=== PATIENT | male | born 1965 | race Caucasian/White ===

== ENCOUNTER 2018-04-20 14:24 | Inpatient (IN) | payer BC ==
[2018-04-20] MEDS: HYDROmorphONE 1 MG/ML SYG IV ×2 (01:20→23:23)
[2018-04-20 16:03] LABS: ADD MAN DIFF? NO
[2018-04-20 16:07] LABS: WHITE BLOOD COUNT 10.2 10^3/ul (4.8-10.8)
[2018-04-20 16:07] LABS: BASOPHILS % 0.3 % (0.0-2.0); EOSINOPHILS # 0.1 10^3/ul (0.0-0.5); EOSINOPHILS % 1.1 % (0.0-7.0); HEMATOCRIT 43.3 % (42.0-52.0); HEMOGLOBIN 14.1 g/dl (14.0-18.0); IMMATURE GRANS #M 0.03 10^3/ul; IMMATURE GRANS % (M) 0.3 %; LYMPHOCYTES # 2.4 10^3/ul (0.8-2.9); LYMPHOCYTES % 23.4 % (15.0-51.0); MEAN CORPUSCULAR HGB CONC 32.6 g/dl (32.0-37.0); MEAN PLATELET VOLUME 9.6 fl (7.4-10.4); MONOCYTE # 0.7 10^3/ul (0.3-0.9); MONOCYTES % 6.7 % (0.0-11.0); NEUTROPHILS % 68.2 % (39.0-77.0); PLATELET COUNT 322 10^3/UL (140-415); RED BLOOD COUNT 5.22 10^6/ul (4.70-6.10); RED CELL DISTRIBUTION WIDTH 13.5 % (11.5-14.5)
[2018-04-20 16:27] LABS: ALANINE AMINOTRANSFERASE 44 IU/L (13-69); ALBUMIN 4.3 g/dl (3.3-4.9); ALBUMIN/GLOBULIN RATIO 1.19; ALKALINE PHOSPHATASE 57 IU/L (42-121); ANION GAP 16 (8-16); ASPARTATE AMINO TRANSFERASE 28 IU/L (15-46); BILIRUBIN,INDIRECT 0.3 mg/dl (0-1.1); BILIRUBIN,TOTAL 0.3 mg/dl (0.2-1.3); BLOOD UREA NITROGEN 11 mg/dl (7-20); CALCIUM 9.4 mg/dl (8.4-10.2); CARBON DIOXIDE 28 mmol/L (21-31); CHLORIDE 102 mmol/L (97-110); CREATININE 0.68 mg/dl (0.61-1.24); GLUCOSE 114 mg/dl (70-220); INR 0.98; POTASSIUM 4.4 mmol/L (3.5-5.1); PROTIME 13.1 Sec (11.9-14.9); SODIUM 142 mmol/L (135-144); TOTAL PROTEIN 7.9 g/dl (6.1-8.1)
[2018-04-20 16:29] LABS: PARTIAL THROMBOPLASTIN TIME 25.5 Sec (25.0-35.0)
[2018-04-20] MEDS ORDERED: MIDAZOLAM 1 MG/ML 2 ML INJ (17:39)
[2018-04-20] MEDS ORDERED: FENTAnyl 50 MCG/ML VIAL ×2 (17:39→20:08)
[2018-04-20] MEDS ORDERED: ROCURONIUM 50 MG INJ (17:41)
[2018-04-20] MEDS ORDERED: SUCCINYLCHOLINE CHLORIDE 100 MG/5 ML SYG IV (17:41)
[2018-04-20] MEDS ORDERED: HEPARIN 1000 UNITS/ML 10 ML INJ (17:42)
[2018-04-20] MEDS ORDERED: ONDANSETRON 4 MG INJ (17:56)
[2018-04-20] MEDS ORDERED: NALOXONE (0.4 MG/ML) INJ IV (19:30)
[2018-04-20] MEDS: DOCUSATE SODIUM 100 MG CAP PO (20:00)
[2018-04-20] MEDS ORDERED: ACETAMINOPHEN 1000MG/100ML IV 100 ML (20:08)
[2018-04-20] MEDS: CEFAZOLIN 1 GM INJ (20:11)
[2018-04-20] MEDS: GELATIN SIZE 100 SPONGE (20:13)
[2018-04-20] MEDS: THROMBIN 5000 UNIT VIAL (20:14)
[2018-04-20] MEDS ORDERED: HYDROmorphONE 2 MG/ML SYG (21:35)
[2018-04-20] MEDS ORDERED: GELATIN SIZE 100 SPONGE (21:39)
[2018-04-20] MEDS ORDERED: THROMBIN 5000 UNIT VIAL (21:39)
[2018-04-20] MEDS: CEFAZOLIN 2 GM/50 ML (PMX) 50 ML IVPB (22:00)
[2018-04-20] MEDS ORDERED: ALBUMIN HUMAN 25% 200 ML (22:29)
[2018-04-20] MEDS ORDERED: PROVENTIL HFA 6.7GM INHALER (22:32)
[2018-04-20] MEDS ORDERED: LABETALOL HCL 20MG INJ (22:58)
[2018-04-20] MEDS ORDERED: METOPROLOL 5 MG INJ (22:58)
[2018-04-20 23:14] LABS: ADD MAN DIFF? NO
[2018-04-20 23:16] LABS: BASOPHILS % 0.1 % (0.0-2.0); EOSINOPHILS % 0.1 % (0.0-7.0); HEMATOCRIT 35.6 % (42.0-52.0); HEMOGLOBIN 11.5 g/dl (14.0-18.0); IMMATURE GRANS #M 0.21 10^3/ul; LYMPHOCYTES # 2.8 10^3/ul (0.8-2.9); MEAN CORPUSCULAR HEMOGLOBIN 27.1 pg (29.0-33.0); MEAN CORPUSCULAR HGB CONC 32.3 g/dl (32.0-37.0); MONOCYTE # 1.2 10^3/ul (0.3-0.9); MONOCYTES % 5.7 % (0.0-11.0); NEUTROPHIL # 17.4 10^3/ul (1.6-7.5); NEUTROPHILS % 80.1 % (39.0-77.0); PLATELET COUNT 261 10^3/UL (140-415); RED BLOOD COUNT 4.24 10^6/ul (4.70-6.10); RED CELL DISTRIBUTION WIDTH 13.6 % (11.5-14.5)
[2018-04-20 23:16] LABS: WHITE BLOOD COUNT 21.7 10^3/ul (4.8-10.8)
[2018-04-20] MEDS ORDERED: HYDROmorphONE 1 MG/ML SYG (23:16)
[2018-04-20] MEDS ORDERED: MIDAZOLAM 1 MG/ML 2 ML INJ IV (23:30)
[2018-04-20] MEDS ORDERED: LORAZEPAM 2 MG INJ IV (23:30)
[2018-04-20] MEDS ORDERED: MEPERIDINE 25 MG INJ IV (23:30)
[2018-04-20] MEDS ORDERED: ONDANSETRON 4 MG INJ IV (23:30)
[2018-04-20] MEDS: IPRATROPIUM (NEB) 0.5 MG/2.5 ML AMP HHN (23:30)
[2018-04-20] MEDS ORDERED: HYDROmorphONE 0.5 MG/0.5 ML SYG IV ×3 (23:30)
[2018-04-20] MEDS ORDERED: hydrALAzine 20 MG INJ IV (23:30)
[2018-04-20] MEDS ORDERED: FENTAnyl 50 MCG/ML VIAL IV ×2 (23:30)
[2018-04-20] MEDS ORDERED: LABETALOL HCL 20MG INJ IV (23:30)
[2018-04-20] MEDS ORDERED: DIPHENHYDRAMINE 50 MG INJ IV (23:30)
[2018-04-20 23:33] LABS: ANION GAP 17 (8-16); BLOOD UREA NITROGEN 11 mg/dl (7-20); CALCIUM 10.3 mg/dl (8.4-10.2); CARBON DIOXIDE 25 mmol/L (21-31); CHLORIDE 103 mmol/L (97-110); CREATININE 0.81 mg/dl (0.61-1.24); GLUCOSE 187 mg/dl (70-220); POTASSIUM 4.4 mmol/L (3.5-5.1); SODIUM 141 mmol/L (135-144)
[2018-04-20 23:57] LABS: INR 1.16; PARTIAL THROMBOPLASTIN TIME 23.8 Sec (25.0-35.0); PT RATIO 1.2
[2018-04-21] MEDS: HYDROmorphONE 1 MG/ML SYG IV (00:23)
[2018-04-21] MEDS: NS + KCL 20 MEQ 1,000 ML IV ×3 (01:00→13:14)
[2018-04-21] MEDS: HYDROCODONE/APAP (5/325) TAB PO (03:12)
[2018-04-21] MEDS: HYDROmorphONE 0.2 MG/ML PCA IV ×2 (05:00→14:02)
[2018-04-21] MEDS: CEFAZOLIN 2 GM/50 ML (PMX) 50 ML IVPB ×2 (05:20→16:11)
[2018-04-21 05:23] LABS: HEMATOCRIT 33.1 % (42.0-52.0); HEMOGLOBIN 10.8 g/dl (14.0-18.0)
[2018-04-21 05:47] LABS: ANION GAP 16 (8-16); BLOOD UREA NITROGEN 11 mg/dl (7-20); CALCIUM 9.5 mg/dl (8.4-10.2); CARBON DIOXIDE 28 mmol/L (21-31); CHLORIDE 104 mmol/L (97-110); CREATININE 0.67 mg/dl (0.61-1.24); GLUCOSE 137 mg/dl (70-220); POTASSIUM 4.7 mmol/L (3.5-5.1); SODIUM 143 mmol/L (135-144)
[2018-04-21] MEDS: DOCUSATE SODIUM 100 MG CAP PO ×2 (10:24→22:17)
[2018-04-21] MEDS: ASPIRIN 81 MG TAB PO (12:00)
[2018-04-21] MEDS ORDERED: ALBUTEROL/IPRATROPIUM (NEB) 3 ML AMP HHN (12:30)
[2018-04-21] MEDS: ATORVASTATIN 10 MG TAB PO (22:16)
[2018-04-21] MEDS: TAMSULOSIN (SR) 0.4 MG CAP PO (22:17)
[2018-04-22] MEDS: ONDANSETRON 4 MG INJ IV (00:31)
[2018-04-22] MEDS: NS + KCL 20 MEQ 1,000 ML IV ×3 (00:32→22:10)
[2018-04-22] MEDS: CEFAZOLIN 2 GM/50 ML (PMX) 50 ML IVPB ×4 (00:45→22:10)
[2018-04-22] MEDS: PANTOPRAZOLE 40 MG INJ IV ×2 (02:50→06:00)
[2018-04-22] MEDS: HYDROmorphONE 0.2 MG/ML PCA IV ×2 (04:00→15:08)
[2018-04-22 05:56] LABS: ADD MAN DIFF? NO
[2018-04-22 06:06] LABS: ABNORMAL IP MESSAGE 1; BASOPHILS % 0.1 % (0.0-2.0); EOSINOPHILS % 0.1 % (0.0-7.0); HEMATOCRIT 35.6 % (42.0-52.0); HEMOGLOBIN 11.4 g/dl (14.0-18.0); IMMATURE GRANS % (M) 0.6 %; LYMPHOCYTES # 1.7 10^3/ul (0.8-2.9); LYMPHOCYTES % 9.3 % (15.0-51.0); MEAN CORPUSCULAR HEMOGLOBIN 26.6 pg (29.0-33.0); MEAN PLATELET VOLUME 9.7 fl (7.4-10.4); MONOCYTE # 1.5 10^3/ul (0.3-0.9); MONOCYTES % 8.5 % (0.0-11.0); NEUTROPHIL # 14.5 10^3/ul (1.6-7.5); NEUTROPHILS % 81.4 % (39.0-77.0); PLATELET COUNT 257 10^3/UL (140-415); POSITIVE DIFF @See below; RED BLOOD COUNT 4.29 10^6/ul (4.70-6.10); RED CELL DISTRIBUTION WIDTH 14.1 % (11.5-14.5)
[2018-04-22 06:06] LABS: WHITE BLOOD COUNT 17.8 10^3/ul (4.8-10.8)
[2018-04-22 06:25] LABS: ANION GAP 15 (8-16); BLOOD UREA NITROGEN 6 mg/dl (7-20); CALCIUM 8.7 mg/dl (8.4-10.2); CARBON DIOXIDE 29 mmol/L (21-31); CHLORIDE 100 mmol/L (97-110); CREATININE 0.76 mg/dl (0.61-1.24); GLUCOSE 130 mg/dl (70-220); POTASSIUM 3.7 mmol/L (3.5-5.1); SODIUM 140 mmol/L (135-144)
[2018-04-22] MEDS: DOCUSATE SODIUM 100 MG CAP PO ×2 (07:52→20:13)
[2018-04-22] MEDS: FINASTERIDE 5 MG TAB PO (07:52)
[2018-04-22] MEDS ORDERED: NON-FORMULARY/PATIENT OWN MED (Aspirin (Low Dose Aspirin) 81 MG) PO (09:00)
[2018-04-22] MEDS ORDERED: POLYMYXIN/BACITRACIN 1L IRRIG (10:36)
[2018-04-22] MEDS ORDERED: ROPIVACAINE 0.5 % 30 ML VIAL (10:36)
[2018-04-22] MEDS: ACETAMINOPHEN 1000MG/100ML IV 100 ML IVPB (11:00)
[2018-04-22 13:49] LABS: LACTIC ACID 1.3 mmol/L (0.5-2.0)
[2018-04-22] MEDS: ASPIRIN 81 MG TAB PO (18:07)
[2018-04-22] MEDS: ATORVASTATIN 10 MG TAB PO (20:13)
[2018-04-22] MEDS: TAMSULOSIN (SR) 0.4 MG CAP PO (20:13)
[2018-04-23] MEDS: ACETAMINOPHEN 325 MG TAB PO (01:04)
[2018-04-23 05:07] LABS: ADD MAN DIFF? NO
[2018-04-23 05:10] LABS: WHITE BLOOD COUNT 14.7 10^3/ul (4.8-10.8)
[2018-04-23 05:10] LABS: BASOPHILS % 0.1 % (0.0-2.0); EOSINOPHILS # 0.1 10^3/ul (0.0-0.5); EOSINOPHILS % 0.6 % (0.0-7.0); HEMOGLOBIN 10.4 g/dl (14.0-18.0); LYMPHOCYTES # 1.9 10^3/ul (0.8-2.9); MEAN CORPUSCULAR HGB CONC 32.5 g/dl (32.0-37.0); MEAN CORPUSCULAR VOLUME 83.1 fl (82.0-101.0); MEAN PLATELET VOLUME 9.6 fl (7.4-10.4); MONOCYTE # 0.9 10^3/ul (0.3-0.9); MONOCYTES % 6.1 % (0.0-11.0); NEUTROPHIL # 11.6 10^3/ul (1.6-7.5); NEUTROPHILS % 79.5 % (39.0-77.0); PLATELET COUNT 219 10^3/UL (140-415); RED BLOOD COUNT 3.85 10^6/ul (4.70-6.10); RED CELL DISTRIBUTION WIDTH 13.8 % (11.5-14.5)
[2018-04-23 05:17] LABS: LACTIC ACID 1.1 mmol/L (0.5-2.0)
[2018-04-23 05:38] LABS: ANION GAP 10 (8-16); BLOOD UREA NITROGEN 5 mg/dl (7-20); CALCIUM 8.2 mg/dl (8.4-10.2); CARBON DIOXIDE 31 mmol/L (21-31); CHLORIDE 101 mmol/L (97-110); GLUCOSE 150 mg/dl (70-220); POTASSIUM 3.6 mmol/L (3.5-5.1); SODIUM 138 mmol/L (135-144)
[2018-04-23] MEDS: CEFAZOLIN 2 GM/50 ML (PMX) 50 ML IVPB ×3 (05:42→22:04)
[2018-04-23] MEDS: PANTOPRAZOLE 40 MG INJ IV (05:42)
[2018-04-23] MEDS: ASPIRIN 81 MG TAB PO (08:52)
[2018-04-23] MEDS: FINASTERIDE 5 MG TAB PO (08:52)
[2018-04-23] MEDS: DOCUSATE SODIUM 100 MG CAP PO ×2 (08:53→20:34)
[2018-04-23] MEDS: HYDROmorphONE 0.2 MG/ML PCA IV (13:41)
[2018-04-23] MEDS: NS + KCL 20 MEQ 1,000 ML IV ×2 (13:43→18:30)
[2018-04-23] MEDS: ATORVASTATIN 10 MG TAB PO (20:34)
[2018-04-23] MEDS: TAMSULOSIN (SR) 0.4 MG CAP PO (20:34)
[2018-04-24] MEDS: NS + KCL 20 MEQ 1,000 ML IV ×3 (02:00→13:34)
[2018-04-24 05:11] LABS: ADD MAN DIFF? NO; BASOPHILS % 0.2 % (0.0-2.0); EOSINOPHILS # 0.2 10^3/ul (0.0-0.5); EOSINOPHILS % 1.4 % (0.0-7.0); HEMOGLOBIN 11.1 g/dl (14.0-18.0); LYMPHOCYTES # 1.5 10^3/ul (0.8-2.9); LYMPHOCYTES % 12.3 % (15.0-51.0); MEAN CORPUSCULAR HEMOGLOBIN 27.2 pg (29.0-33.0); MEAN CORPUSCULAR HGB CONC 32.6 g/dl (32.0-37.0); MEAN CORPUSCULAR VOLUME 83.3 fl (82.0-101.0); MEAN PLATELET VOLUME 9.5 fl (7.4-10.4); MONOCYTE # 0.8 10^3/ul (0.3-0.9); MONOCYTES % 6.5 % (0.0-11.0); NEUTROPHIL # 9.9 10^3/ul (1.6-7.5); PLATELET COUNT 262 10^3/UL (140-415); RED BLOOD COUNT 4.08 10^6/ul (4.70-6.10); RED CELL DISTRIBUTION WIDTH 13.6 % (11.5-14.5)
[2018-04-24 05:11] LABS: WHITE BLOOD COUNT 12.5 10^3/ul (4.8-10.8)
[2018-04-24 05:34] LABS: ANION GAP 10 (8-16); BLOOD UREA NITROGEN 7 mg/dl (7-20); CALCIUM 8.5 mg/dl (8.4-10.2); CARBON DIOXIDE 34 mmol/L (21-31); CHLORIDE 100 mmol/L (97-110); CREATININE 0.65 mg/dl (0.61-1.24); GLUCOSE 131 mg/dl (70-220); POTASSIUM 3.8 mmol/L (3.5-5.1); SODIUM 140 mmol/L (135-144)
[2018-04-24] MEDS: PANTOPRAZOLE 40 MG INJ IV (06:14)
[2018-04-24] MEDS: CEFAZOLIN 2 GM/50 ML (PMX) 50 ML IVPB ×3 (06:14→21:19)
[2018-04-24] MEDS: ASPIRIN 81 MG TAB PO (09:09)
[2018-04-24] MEDS: DOCUSATE SODIUM 100 MG CAP PO ×2 (09:09→21:00)
[2018-04-24] MEDS: FINASTERIDE 5 MG TAB PO (09:09)
[2018-04-24] MEDS: BISACODYL 10 MG SUPP PR (17:02)
[2018-04-24] MEDS: ATORVASTATIN 10 MG TAB PO (21:00)
[2018-04-24] MEDS: TAMSULOSIN (SR) 0.4 MG CAP PO (21:00)
[2018-04-24] MEDS: ACETAMINOPHEN 325 MG TAB PO (21:00)
[2018-04-25] MEDS: ACETAMINOPHEN 325 MG TAB PO (01:19)
[2018-04-25] MEDS: CEFAZOLIN 2 GM/50 ML (PMX) 50 ML IVPB ×3 (05:01→22:00)
[2018-04-25] MEDS: PANTOPRAZOLE 40 MG INJ IV (05:01)
[2018-04-25] MEDS: NS + KCL 20 MEQ 1,000 ML IV ×2 (05:01→22:24)
[2018-04-25 06:00] LABS: ADD MAN DIFF? NO
[2018-04-25 06:02] LABS: WHITE BLOOD COUNT 9.6 10^3/ul (4.8-10.8)
[2018-04-25 06:02] LABS: BASOPHILS % 0.2 % (0.0-2.0); EOSINOPHILS # 0.3 10^3/ul (0.0-0.5); EOSINOPHILS % 3.1 % (0.0-7.0); HEMATOCRIT 33.3 % (42.0-52.0); HEMOGLOBIN 10.8 g/dl (14.0-18.0); LYMPHOCYTES % 21.2 % (15.0-51.0); MEAN CORPUSCULAR HEMOGLOBIN 27.2 pg (29.0-33.0); MEAN CORPUSCULAR HGB CONC 32.4 g/dl (32.0-37.0); MEAN CORPUSCULAR VOLUME 83.9 fl (82.0-101.0); MEAN PLATELET VOLUME 9.5 fl (7.4-10.4); MONOCYTE # 0.7 10^3/ul (0.3-0.9); MONOCYTES % 7.6 % (0.0-11.0); NEUTROPHIL # 6.5 10^3/ul (1.6-7.5); NEUTROPHILS % 67.3 % (39.0-77.0); PLATELET COUNT 305 10^3/UL (140-415); RED BLOOD COUNT 3.97 10^6/ul (4.70-6.10); RED CELL DISTRIBUTION WIDTH 13.9 % (11.5-14.5)
[2018-04-25 06:25] LABS: ANION GAP 11 (8-16); BLOOD UREA NITROGEN 9 mg/dl (7-20); CALCIUM 8.5 mg/dl (8.4-10.2); CARBON DIOXIDE 30 mmol/L (21-31); CHLORIDE 107 mmol/L (97-110); CREATININE 0.61 mg/dl (0.61-1.24); GLUCOSE 110 mg/dl (70-220); POTASSIUM 3.7 mmol/L (3.5-5.1); SODIUM 144 mmol/L (135-144)
[2018-04-25] MEDS ORDERED: LIDOCAINE 2% (SDV) 5 ML INJ (07:00)
[2018-04-25] MEDS ORDERED: DEXAMETHASONE 4 MG/ML 1 ML INJ (07:00)
[2018-04-25] MEDS ORDERED: ROCURONIUM 50 MG INJ (07:00)
[2018-04-25] MEDS ORDERED: ONDANSETRON 4 MG INJ (07:00)
[2018-04-25] MEDS: ROPIVACAINE 0.5 % 30 ML VIAL (07:01)
[2018-04-25] MEDS ORDERED: THROMBIN 5000 UNIT VIAL (07:01)
[2018-04-25] MEDS ORDERED: GELATIN SIZE 100 SPONGE (07:01)
[2018-04-25] MEDS: POLYMYXIN/BACITRACIN 1L IRRIG (07:01)
[2018-04-25] MEDS ORDERED: MIDAZOLAM 1 MG/ML 2 ML INJ (07:42)
[2018-04-25] MEDS ORDERED: morphine 10 MG INJ (08:02)
[2018-04-25] MEDS ORDERED: ROPIVACAINE 0.5 % 30 ML VIAL (08:07)
[2018-04-25] MEDS ORDERED: LABETALOL HCL 20MG INJ (08:17)
[2018-04-25] MEDS ORDERED: SUGAMMADEX SODIUM 200 MG/2 ML VIAL IV (08:55)
[2018-04-25] MEDS ORDERED: CEFAZOLIN 1 GM INJ (08:55)
[2018-04-25] MEDS ORDERED: PROPOFOL 20 ML (08:55)
[2018-04-25] MEDS: HYDROmorphONE 1 MG/5 ML IV SYRINGE IV ×5 (09:25→09:47)
[2018-04-25] MEDS ORDERED: FENTAnyl 50 MCG/ML VIAL IV ×2 (09:30)
[2018-04-25] MEDS ORDERED: KETOROLAC 30 MG INJ IV (09:30)
[2018-04-25] MEDS ORDERED: OXYCODONE/ACETAMINOPHEN (5/325) TAB PO ×2 (09:30)
[2018-04-25] MEDS ORDERED: hydrALAzine 20 MG INJ IV (09:30)
[2018-04-25] MEDS ORDERED: MIDAZOLAM 1 MG/ML 2 ML INJ IV (09:30)
[2018-04-25] MEDS ORDERED: ALBUTEROL 0.083% (NEB) 2.5 MG/3 ML AMP HHN (09:30)
[2018-04-25] MEDS ORDERED: MEPERIDINE 25 MG INJ IV (09:30)
[2018-04-25] MEDS ORDERED: ONDANSETRON 4 MG INJ IV (09:30)
[2018-04-25] MEDS ORDERED: DIPHENHYDRAMINE 50 MG INJ IV (09:30)
[2018-04-25] MEDS ORDERED: METOCLOPRAMIDE 10 MG INJ IV (09:30)
[2018-04-25] MEDS ORDERED: EPHEDrine SULFATE 50 MG/5 ML SYG IV (09:30)
[2018-04-25] MEDS ORDERED: LABETALOL HCL 20MG INJ IV (09:30)
[2018-04-25] MEDS: FENTAnyl 50 MCG/ML VIAL IV ×2 (09:51→10:03)
[2018-04-25] MEDS: ASPIRIN 81 MG TAB PO (12:37)
[2018-04-25] MEDS: FINASTERIDE 5 MG TAB PO (12:37)
[2018-04-25] MEDS: DOCUSATE SODIUM 100 MG CAP PO ×2 (12:37→20:23)
[2018-04-25] MEDS: HYDROmorphONE 0.2 MG/ML PCA IV ×2 (13:19→23:42)
[2018-04-25] MEDS: ATORVASTATIN 10 MG TAB PO (20:23)
[2018-04-25] MEDS: BISACODYL 10 MG SUPP PR (20:24)
[2018-04-25] MEDS: TAMSULOSIN (SR) 0.4 MG CAP PO (20:25)
[2018-04-26] MEDS: CEFAZOLIN 2 GM/50 ML (PMX) 50 ML IVPB ×4 (02:04→21:31)
[2018-04-26 05:18] LABS: ADD MAN DIFF? NO
[2018-04-26 05:28] LABS: WHITE BLOOD COUNT 13.2 10^3/ul (4.8-10.8)
[2018-04-26 05:28] LABS: BASOPHILS % 0.3 % (0.0-2.0); EOSINOPHILS # 0.4 10^3/ul (0.0-0.5); HEMATOCRIT 32.3 % (42.0-52.0); HEMOGLOBIN 10.3 g/dl (14.0-18.0); LYMPHOCYTES # 2.3 10^3/ul (0.8-2.9); LYMPHOCYTES % 17.4 % (15.0-51.0); MEAN CORPUSCULAR HEMOGLOBIN 26.3 pg (29.0-33.0); MEAN CORPUSCULAR HGB CONC 31.9 g/dl (32.0-37.0); MEAN CORPUSCULAR VOLUME 82.6 fl (82.0-101.0); MONOCYTE # 1.2 10^3/ul (0.3-0.9); MONOCYTES % 9.1 % (0.0-11.0); NEUTROPHIL # 9.2 10^3/ul (1.6-7.5); NEUTROPHILS % 69.5 % (39.0-77.0); PLATELET COUNT 333 10^3/UL (140-415); RED BLOOD COUNT 3.91 10^6/ul (4.70-6.10); RED CELL DISTRIBUTION WIDTH 14.1 % (11.5-14.5)
[2018-04-26] MEDS: PANTOPRAZOLE 40 MG INJ IV (05:57)
[2018-04-26 06:19] LABS: ANION GAP 12 (8-16); BLOOD UREA NITROGEN 6 mg/dl (7-20); CALCIUM 8.1 mg/dl (8.4-10.2); CARBON DIOXIDE 29 mmol/L (21-31); CHLORIDE 100 mmol/L (97-110); CREATININE 0.64 mg/dl (0.61-1.24); GLUCOSE 123 mg/dl (70-220); POTASSIUM 3.9 mmol/L (3.5-5.1); SODIUM 137 mmol/L (135-144)
[2018-04-26] MEDS: NS + KCL 20 MEQ 1,000 ML IV ×2 (06:30→12:15)
[2018-04-26] MEDS: DOCUSATE SODIUM 100 MG CAP PO ×2 (08:15→20:42)
[2018-04-26] MEDS: ASPIRIN 81 MG TAB PO (08:15)
[2018-04-26] MEDS: FINASTERIDE 5 MG TAB PO (08:15)
[2018-04-26] MEDS: HYDROmorphONE 0.2 MG/ML PCA IV (08:42)
[2018-04-26 12:51] LABS: PROCALCITONIN 0.46 ng/mL (<0.10)
[2018-04-26] MEDS: ALBUTEROL/IPRATROPIUM (NEB) 3 ML AMP HHN ×2 (13:04→20:26)
[2018-04-26] MEDS: DIPHENHYDRAMINE 25 MG CAP PO ×2 (15:04→21:30)
[2018-04-26] MEDS: AL HYDROX/MG HYDROX/SIMETH 30 ML CUP PO (15:04)
[2018-04-26] MEDS: HYDROmorphONE 0.5 MG/0.5 ML SYG IV (17:40)
[2018-04-26] MEDS: ATORVASTATIN 10 MG TAB PO (20:42)
[2018-04-26] MEDS: TAMSULOSIN (SR) 0.4 MG CAP PO (20:42)
[2018-04-26] MEDS: SENNA TAB PO (20:43)
[2018-04-26] MEDS: HYDROCODONE/APAP (5/325) TAB PO (20:43)
[2018-04-27] MEDS: DIPHENHYDRAMINE 25 MG CAP PO ×2 (04:02→20:53)
[2018-04-27] MEDS: NS + KCL 20 MEQ 1,000 ML IV (04:03)
[2018-04-27 05:22] LABS: WHITE BLOOD COUNT 12.8 10^3/ul (4.8-10.8)
[2018-04-27 05:22] LABS: ADD MAN DIFF? NO; BASOPHILS % 0.2 % (0.0-2.0); EOSINOPHILS # 0.2 10^3/ul (0.0-0.5); EOSINOPHILS % 1.7 % (0.0-7.0); HEMATOCRIT 31.9 % (42.0-52.0); HEMOGLOBIN 10.2 g/dl (14.0-18.0); LYMPHOCYTES # 1.8 10^3/ul (0.8-2.9); LYMPHOCYTES % 14.2 % (15.0-51.0); MEAN CORPUSCULAR HEMOGLOBIN 26.7 pg (29.0-33.0); MEAN CORPUSCULAR VOLUME 83.5 fl (82.0-101.0); MEAN PLATELET VOLUME 9.3 fl (7.4-10.4); MONOCYTE # 1.1 10^3/ul (0.3-0.9); MONOCYTES % 8.4 % (0.0-11.0); NEUTROPHIL # 9.6 10^3/ul (1.6-7.5); NEUTROPHILS % 74.7 % (39.0-77.0); PLATELET COUNT 353 10^3/UL (140-415); RED BLOOD COUNT 3.82 10^6/ul (4.70-6.10)
[2018-04-27] MEDS: CEFAZOLIN 2 GM/50 ML (PMX) 50 ML IVPB ×2 (06:19→14:33)
[2018-04-27] MEDS: PANTOPRAZOLE 40 MG INJ IV (06:19)
[2018-04-27] MEDS: ALBUTEROL/IPRATROPIUM (NEB) 3 ML AMP HHN ×2 (08:09→19:47)
[2018-04-27] MEDS: HYDROCODONE/APAP (5/325) TAB PO ×3 (08:46→19:57)
[2018-04-27] MEDS: ASPIRIN 81 MG TAB PO (09:41)
[2018-04-27] MEDS: FINASTERIDE 5 MG TAB PO (09:42)
[2018-04-27] MEDS: DOCUSATE SODIUM 100 MG CAP PO ×2 (09:42→20:49)
[2018-04-27] MEDS: TAMSULOSIN (SR) 0.4 MG CAP PO (20:49)
[2018-04-27] MEDS: SENNA TAB PO (20:49)
[2018-04-27] MEDS: ATORVASTATIN 10 MG TAB PO (20:49)
[2018-04-28] MEDS: HYDROCODONE/APAP (5/325) TAB PO ×3 (03:48→20:02)
[2018-04-28] MEDS: NS + KCL 20 MEQ 1,000 ML IV ×2 (05:28→21:44)
[2018-04-28] MEDS: PANTOPRAZOLE (EC) 40 MG TAB PO (06:21)
[2018-04-28] MEDS: DOCUSATE SODIUM 100 MG CAP PO ×2 (08:37→20:52)
[2018-04-28] MEDS: ASPIRIN 81 MG TAB PO (08:37)
[2018-04-28] MEDS: FINASTERIDE 5 MG TAB PO (08:37)
[2018-04-28] MEDS: ALBUTEROL/IPRATROPIUM (NEB) 3 ML AMP HHN ×2 (09:49→20:19)
[2018-04-28] MEDS: HYDROmorphONE 2 MG TAB PO (10:11)
[2018-04-28] MEDS: SENNA TAB PO (20:52)
[2018-04-28] MEDS: ATORVASTATIN 10 MG TAB PO (20:52)
[2018-04-28] MEDS: TAMSULOSIN (SR) 0.4 MG CAP PO (20:52)
[2018-04-29] MEDS: HYDROCODONE/APAP (5/325) TAB PO ×3 (01:48→12:20)
[2018-04-29] MEDS: DIPHENHYDRAMINE 25 MG CAP PO (05:23)
[2018-04-29] MEDS: PANTOPRAZOLE (EC) 40 MG TAB PO (05:23)
[2018-04-29 05:24] LABS: ADD MAN DIFF? NO
[2018-04-29 05:29] LABS: BASOPHILS % 0.3 % (0.0-2.0); EOSINOPHILS # 0.3 10^3/ul (0.0-0.5); EOSINOPHILS % 2.3 % (0.0-7.0); HEMOGLOBIN 10.8 g/dl (14.0-18.0); LYMPHOCYTES # 2.6 10^3/ul (0.8-2.9); MEAN CORPUSCULAR HEMOGLOBIN 26.3 pg (29.0-33.0); MEAN CORPUSCULAR HGB CONC 31.8 g/dl (32.0-37.0); MEAN CORPUSCULAR VOLUME 82.9 fl (82.0-101.0); MEAN PLATELET VOLUME 9.2 fl (7.4-10.4); MONOCYTE # 0.9 10^3/ul (0.3-0.9); MONOCYTES % 6.7 % (0.0-11.0); NEUTROPHILS % 69.2 % (39.0-77.0); PLATELET COUNT 481 10^3/UL (140-415)
[2018-04-29 05:53] LABS: ANION GAP 12 (8-16); BLOOD UREA NITROGEN 12 mg/dl (7-20); CARBON DIOXIDE 30 mmol/L (21-31); CHLORIDE 101 mmol/L (97-110); CREATININE 0.65 mg/dl (0.61-1.24); GLUCOSE 110 mg/dl (70-220); POTASSIUM 4.3 mmol/L (3.5-5.1); SODIUM 139 mmol/L (135-144)
[2018-04-29] MEDS: ALBUTEROL/IPRATROPIUM (NEB) 3 ML AMP HHN (08:06)
[2018-04-29] MEDS: ASPIRIN 81 MG TAB PO (09:25)
[2018-04-29] MEDS: DOCUSATE SODIUM 100 MG CAP PO (09:25)
[2018-04-29] MEDS: FINASTERIDE 5 MG TAB PO (09:25)
== END 2018-04-29 18:05 | disposition home health service (06) | DRG 453 ==
LOC: REC 14:24 → ICU 22:59 → MS1 04-21 19:38
PROC: 0SG30A0 Fusion of Lumbosacral Joint with Interbody Fusion Device, Anterior Approach, Anterior Column, Open Approach (ICD-10-PCS; principal; 2018-04-20 16:30)
PROC: 0SG10A0 Fusion of 2 or more Lumbar Vertebral Joints with Interbody Fusion Device, Anterior Approach, Anterior Column, Open Approach (ICD-10-PCS; 2018-04-20 16:30)
PROC: 0SB20ZZ Excision of Lumbar Vertebral Disc, Open Approach (ICD-10-PCS; 2018-04-20 16:30)
PROC: 0SB40ZZ Excision of Lumbosacral Disc, Open Approach (ICD-10-PCS; 2018-04-20 16:30)
PROC: 0SG10K1 Fusion of 2 or more Lumbar Vertebral Joints with Nonautologous Tissue Substitute, Posterior Approach, Posterior Column, Open Approach (ICD-10-PCS; 2018-04-20 18:46)
PROC: 0SG30K1 Fusion of Lumbosacral Joint with Nonautologous Tissue Substitute, Posterior Approach, Posterior Column, Open Approach (ICD-10-PCS; 2018-04-20 18:46)
DX: M51.17 Intervertebral disc disorders with radiculopathy, lumbosacral region (principal); J18.9 Pneumonia, unspecified organism; J98.11 Atelectasis; I10 Essential (primary) hypertension; E78.5 Hyperlipidemia, unspecified; E66.01 Morbid (severe) obesity due to excess calories; Z68.38 Body mass index [BMI] 38.0-38.9, adult; N40.0 Benign prostatic hyperplasia without lower urinary tract symptoms; G47.30 Sleep apnea, unspecified; M47.26 Other spondylosis with radiculopathy, lumbar region; E66.9 Obesity, unspecified; Z88.0 Allergy status to penicillin
CPT/HCPCS: 71045; 72100; 72114; 72131; 80048; 80053; 83605; 84145; 85014; 85018; 85025; 85610; 85730; 86850; 86900; 86901; 86920; 87040; 87086; 88304; 88307; 93005; 94640; 94664; 97110; 97116; 97161; 97164; 97530